=== PATIENT | female | born 1980 | race Caucasian/White ===

== ENCOUNTER 2024-10-19 14:54 | Outpatient (AMB) | payer BC, SELFPAY ==
[2024-10-19 15:03] VITALS: BP 117/70; PULSE 77; RESP 18; TEMP 36.6; O2SAT 99; BMI 25.5
--- NOTE | 2024-10-19 15:03 | AMB.GYNCLNOT ---
Vital Signs 10/19/24 15:03 Height 1.63 m Height Method Stated Weight 67.585 kg Weight Measurement Method Standing Scale BMI 25.5 BP 117/70 Blood Pressure Source Automatic Cuff Blood Pressure Location Right Upper Arm Position Sitting Respiration 18 Pulse 77 Pulse Source Monitor Temp 98 F Temp Source Temporal Artery Scan Pulse Oximetry (%) 99 Oxygen Delivery Method Room Air Allergies/Home Meds Allergies & Medications Allergies No Known Allergies Allergy (Verified 10/19/24 15:04) Medication Reconciliation No Known Home Medications 10/19/24 [History Confirmed 10/19/24] Intake Visit Data Collection New Patient or Established: New Patient (never been to [facility]) Reason for Visit:: irregular menses, 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 Required: No Do You Feel Safe at Home: Yes Authorities Contacted: N/A PCP or OBGYN visit in last 3 months: Yes Last menstrual period: 10/17/24 Pain Present Currently: No Smoking Status Smoking Status: Never smoker 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 1. Little interest or pleasure in doing things: not at all 2. 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-old sons Tobacco History Smoking Status: Never smoker Alcohol History Alcohol Intake: Never Domestic Abuse History Do You Feel Safe at Home: Yes Past Medical History Past Medical History Have you ever been diagnosed with any of the following: Neurological Problems Migraine: Yes (With aura with progesterone pills) Reproductive Problems Breast Cancer: No Endometriosis: No Fibroids: No Genital Herpes: No Gonorrhea: No Pelvic Inflammatory Disease: No Polycystic Ovarian Syndrome: No Previous Pregnancies: Yes ( in 2012 and in 2016) Syphilis: No Uterine Prolapse: No Musculoskeletal Problems Arthritis: Yes Fibromyalgia: No Endocrine Problems Diabetes Mellitus Type 2: No Hyperthyroidism: No Hypothyroidism: No Blood Problems Anemia: No Psychologic Problems Depression: Yes Anxiety: Yes Other Problems Hospitalization: Yes (For childbirth x 2) Surgical History Additional Surgical History: x 2 History of Present Illness HPI Narrative The patient is a 44-year-old -0-0-2 history of x 2 in the past who presents as a new patient to [place]. 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 Her sons are 13 and 9 years old. Patient used to follow me in [place]. She did have a Pap with [facility]. This was July 30, 2024 performed in [place] [address] Maki her Pap was negative and HPV was negative at the time. Today, the patient reports her cycles are heavy, she reports bleeding 4 to 5 days each month. She also is reporting painful intercourse and would like a referral to pelvic floor physical therapy. She was a patient of mine for years in [place] but did not release her records to me yet. She denies hot flashes or night sweats she reports painful intercourse cramping with her heavy cycles ,joint stiffness joint pain ,anxiety ,depression and migraines with aura. She currently is on Tonia for contraception. She tried an IUD in the past and it she expelled it. They tried progesterone only control and it caused her to have increased migraines. She is right now on Khadijah control. She is interested in hearing about a an ablation. She has not had lab work or an ultrasound lately. Review of Systems Review of Systems Narrative Review of Systems: No hot flashes no night sweats patient does report pelvic pain and heavy cycles 4 to 5 days each month. She reports joint pain and migraines and joint stiffness. She reports anxiety and depression. No abnormal discharge no new partners. No urinary complaints no incontinence. Exam General General Appearance: alert, in no apparent distress, comfortable, cooperative, healthy appearing, well developed and well groomed Neck Neck exam: Present normal inspection, full ROM and trachea midline Chest Chest inspection: Present normal inspection and symmetric chest wall rise Resp Respiratory exam: Present normal lung sounds bilaterally Card Cardiovascular exam: Present regular rate, normal rhythm and normal heart sounds Abdominal Abdominal exam: Present soft and normal bowel sounds External exam: Present normal external exam Speculum exam: Present normal speculum exam Bimanual exam: Present normal bimanual exam (Uterus is retroverted good pelvic support present. Uterus appears normal size.) Psych Psychiatric exam: Present normal affect and normal mood Skin Skin exam: Present warm, dry, intact and normal color Assessment & Plan Diagnosis / Problem List (1) Pelvic pain: Status: Acute Assessment and Plan: Check pelvic ultrasound (2) Menorrhagia, premenopausal: Status: Acute Assessment and Plan: Check CBC thyroid and pelvic ultrasound (3) Dyspareunia in female: Status: Acute Assessment and Plan: Referred to pelvic floor physical therapy Plan Patient offered to continue on control pills for now for her heavy cycles and painful periods. I recommended ibuprofen around her cycles. Will refer her onto pelvic floor physical therapy. Patient declines another IUD for her cycles stating she already expelled it. She is interested in a NovaSure endometrial ablation. We will send the patient information on this and go and order an ultrasound once this is back we can authorize for the procedure. Patient will only be a good candidate if she does not have multiple uterine fibroids. Patient will follow-up after her lab work and testing is done. Additional Plan Follow Up: 2 Months Office Procedures OB Clinic LOC & Office Proc's Nursing/Assessment Patient Status: Initial/New Patient OB Clinic Nursing Assessment: Medication Reconciliation, Update PMH in EMR and Vital Signs OB Clinic Coordination of Care: Complex Care and Chronic Disease 1-5, Education Complex Pt/Fam, Consent,records obtained, informed consent and Staff clarify orders New Patient Charge New Patient Point Assignment: 8845 New Patient Point Charge: COPIER AND PRINTER FIELD TECHNICIAN Level 3 ([id number])
== END 2024-10-19 16:26 | disposition home or self-care (01) ==
PROVIDERS: Supervising Provider Obstetrics & Gynecology; Visit Provider Obstetrics & Gynecology
DX: N92.4 Excessive bleeding in the premenopausal period (principal); N94.10 Unspecified dyspareunia; R10.2 Pelvic and perineal pain; Z79.3 Long term (current) use of hormonal contraceptives
CPT/HCPCS: 99203; G0463

== ENCOUNTER 2024-11-16 11:41 | Outpatient (AMB) | payer BC, SELFPAY ==
--- NOTE | 2024-11-16 11:53 | GYNCLNT_ITS ---
Allergies/Home Meds Allergies & Medications Allergies No Known Allergies Allergy (Verified 11/16/24 11:53) Medication Reconciliation No Known Home Medications 10/19/24 [History Confirmed 11/16/24] Intake Visit Data Collection New Patient or Established: Established Patient (seen at [facility] within 3 years) Reason for Visit:: SONO RESULTS Consent obtained for Telemed Visit: Yes Seen by Clinical Staff ONLY (RN/MA): No Boiler House Supervisor Required: No Do You Feel Safe at Home: Yes Authorities Contacted: N/A PCP or OBGYN visit in last 3 months: Yes Hx Now: No Are you currently on any form of Control: Yes Last menstrual period: 11/06/24 Pain Present Currently: No Pain Scale Used: Martínez-Mora/Numerical Pain scale:: 0 Smoking Status Smoking Status: Never smoker For Telemed visit only Verbal consent obtained for Telemed visit?: Yes Verbal Consent witness name: WILLIE PARIS COIL MACHINE SUPERVISOR: Past Medical History Past Medical History: No Hx Hypothyroidism, No Hx Hyperthyroidism, No Hx Breast Cancer, No Hx Anemia, No Hx Diabetes Mellitus Type 2 and No Hx Polycystic Ovarian Syndrome Questionnaires Covid-19 Vaccine Questionnaire Has patient been vacinated for Covid-19 Have you been vacinated for Covid-19: Yes PHQ-9 PHQ-2 Over the last 2 weeks, how often have you been bothered by any of the following problems? 1. Little interest or pleasure in doing things: not at all 2. Feeling down, depressed, or hopeless: not at all Total score: 0 PHQ-9 3. Trouble falling or staying asleep, or sleeping too much: Not at all 4. Feeling tired or having little energy: Not at all 5. Poor appetite or overeating: Not at all 6. Feeling bad about yourself - or that you are a failure or have let yourself or your family down: Not at all 7. Trouble concentrating on things, such as reading the newspaper or watching television: Not at all 8. Moving or speaking so slowly that other people could have noticed? - Or the opposite - being so fidgety or restless that you have been moving around a lot more than usual: not at all 9. Thoughts that you would be better off or of hurting yourself in some way: Not at all Total score: 0 Source: Developed by Najma UribeW. Hakeem, Angelito Mondragon and colleagues, with an educational davide from [employer]). 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 The patient has been having heavy cycles for at least 3-5 days a month and then she can bleed up to 10 days total each month there is some cramping associated with her bleeding. She has migraine with aura and is on low-dose progesterone in the form of Khadijah control once a day. We apparently tried an IUD in the past and she expelled it. She did just get called by physical therapy today and is going to go to pelvic floor physical therapy she had an ultrasound performed in [place] she is calling today for the results the exam was 11/09/2024 her uterus is retroverted measuring 9.1 x 5.8 x 7.7 cm with a several small masses consistent with fibroids the largest is 1.7 cm the endometrial thickness was 1.6 cm left and right ovary were normal patient is has not done anything permanent for contraception she is not sure her will get a vasectomy we did discuss condoms and doing an ablation or timing at her cycles and doing an ablation or staying on her low-dose control and doing an ablation possibly adding a patch for her migraines versus a hysterectomy. Patient is unsure whether she wants to pursue a hysterectomy, she might pursue an ablation with tubal ligation. All questions were answered. At this time the patient would like some time to think about options. She will call back with her decision. Office Procedures OB Clinic LOC & Office Proc's Nursing/Assessment Patient Status: Established Patient OB Clinic Nursing Assessment: Medication Reconciliation, Update PMH in EMR and Vital Signs OB Clinic Coordination of Care: Complex Care and Chronic Disease 1-5, Education Simp Pt/Fam, Results/Orders obtained and Staff clarify orders Established Patient Charge Established Patient Point Assignment: 85 Telehealth If patient is seen using Teleconference methods, complete New/Est section, but DO NOT aiyana points only aiyana the correct Telemed visit type Telemed Phone/Video with patient at home & Dr,PA,ASSOCIATE PROJECT MANAGER: Yes
== END 2024-11-16 12:34 | disposition home or self-care (01) ==
LOC: HODSOBC 11:41
PROVIDERS: Supervising Provider Obstetrics & Gynecology; Visit Provider Obstetrics & Gynecology
DX: N85.8 Other specified noninflammatory disorders of uterus (principal); N85.4 Malposition of uterus; R93.89 Abnormal findings on diagnostic imaging of other specified body structures; G43.109 Migraine with aura, not intractable, without status migrainosus; Z79.3 Long term (current) use of hormonal contraceptives
CPT/HCPCS: 99212; G0463

== ENCOUNTER 2024-12-09 11:26 | Outpatient (AMB) | payer BC, SELFPAY ==
--- NOTE | 2024-12-09 11:41 | GYNCLNT_ITS ---
Allergies/Home Meds Allergies & Medications Allergies No Known Allergies Allergy (Verified 12/09/24 11:42) Medication Reconciliation No Known Home Medications 10/19/24 [History Confirmed 12/09/24] Intake Visit Data Collection New Patient or Established: Established Patient (seen at [facility] within 3 years) Reason for Visit:: TELEMED Consent obtained for Telemed Visit: Yes (PATIENT GAVE VERBAL CONSENT FOR APPT ) Seen by Clinical Staff ONLY (RN/MA): No Piano And Organ Refinisher Required: No Do You Feel Safe at Home: Yes Authorities Contacted: N/A PCP or OBGYN visit in last 3 months: Yes Date of Last PCP or OBGYN visit: 10/19/24 Hx Now: No Are you currently on any form of Control: Yes Last menstrual period: 11/29/24 Pain Present Currently: No Pain Scale Used: Martínez-Mora/Numerical Pain scale:: 0 Smoking Status Smoking Status: Never smoker 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 1. Little interest or pleasure in doing things: not at all 2. Feeling down, depressed, or hopeless: not at all Total score: 0 PHQ-9 3. Trouble falling or staying asleep, or sleeping too much: Not at all 4. Feeling tired or having little energy: Not at all 5. Poor appetite or overeating: Not at all 6. Feeling bad about yourself - or that you are a failure or have let yourself or your family down: Not at all 7. Trouble concentrating on things, such as reading the newspaper or watching television: Not at all 8. Moving or speaking so slowly that other people could have noticed? - Or the opposite - being so fidgety or restless that you have been moving around a lot more than usual: not at all 9. Thoughts that you would be better off or of hurting yourself in some way: Not at all Total score: 0 If you checked off any problems, how difficult have these problems made it for you to do your work, take care of things at home, or get along with other people?: not difficult at all Source: Developed by Drs. Alexandro Kaur, Najma Palacio, Angelito Mondragon and colleagues, with an educational davide from [employer]. 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 She has an US with multiple small fibroids. She was considering a hysteroscopy/Ablation and BT nut now wants a minimally-invasive hysterectomy. Is interested in a robotic hysterectomy. Will refer to Dr Anderson in [place] for robotic hysterectomy. Office Procedures OB Clinic LOC & Office Proc's Nursing/Assessment Patient Status: Established Patient OB Clinic Nursing Assessment: Medication Reconciliation and Update PMH in EMR OB Clinic Coordination of Care: Education Complex Pt/Fam, Consent,records obtained, informed consent and Staff clarify orders Established Patient Charge Established Patient Point Assignment: 50 Telehealth If patient is seen using Teleconference methods, complete New/Est section, but DO NOT aiyana points only aiyana the correct Telemed visit type Telemed Phone/Video with patient at home & Dr,PA,COST REDUCTION ENGINEER: Yes Assessment & Plan Diagnosis / Problem List (1) Dyspareunia in female: Status: Acute Assessment and Plan: Has appointment for pelvic floor PT. Causes of pelvic pain and dysmenorrhea discussed including endometriosis and adenomyosis. (2) Menorrhagia, premenopausal: Status: Acute Assessment and Plan: Will refer to Dr Aiyana Anderson in [place] for robotic hysterectomy. (3) Pelvic pain: Status: Acute
== END 2024-12-09 14:12 | disposition home or self-care (01) ==
PROVIDERS: Supervising Provider Obstetrics & Gynecology; Visit Provider Obstetrics & Gynecology
DX: N94.10 Unspecified dyspareunia (principal); N92.4 Excessive bleeding in the premenopausal period; R10.2 Pelvic and perineal pain
CPT/HCPCS: 99212; G0463